=== PATIENT | female | born 1960 | race African-American/Black ===

== ENCOUNTER 2018-05-06 17:34 | Emergency (ER) | payer OTHER ==
[~2018-05-06] VITALS: Ht 175.3 cm; Wt 75.0 kg
[2018-05-06 17:38] VITALS: BP 136/78; PULSE 75; RESP 20; TEMP 98; O2SAT 97
--- NOTE | 2018-05-06 17:44 | PD ---
HPI Chief Complaint: Fall Time Seen by Provider: 17:43 Travel History International Travel<30 days: No Contact w/Intl Traveler<30days: No Traveled to known affect area: No History of Present Illness HPI 57-year-old female with history of fibromyalgia and osteoporosis presents emergency department for evaluation of chest pain after a trip and fall. Patient states she struck her chest on the ground. The wind was knocked out of her. She states it is been painful to take a brief deep breaths since. Pain is a 6 out of 10, constant, exacerbated to a 10 out of 10 with deep inspiration. Denies any hemoptysis. She did not strike her head or lose consciousness. Denies any other symptoms at this time. [facility] Past Medical History Fibromyalgia: Yes Social History Tobacco Use: No Allergies-Medications (Allergen,Severity, Reaction): Coded Allergies: No Known Allergies (Verified Allergy, Unknown, 05/06/18) Review of Systems Except as stated in HPI: all other systems reviewed are Neg Physical Exam Narrative GENERAL: Well-nourished, well-developed female patient in no acute distress SKIN: Focused skin assessment warm/dry. HEAD: Normocephalic. Atraumatic EYES: No scleral icterus. No injection or drainage. NECK: Supple, trachea midline. No JVD or lymphadenopathy. CARDIOVASCULAR: Regular rate and rhythm without murmurs, gallops, or rubs. RESPIRATORY: Breath sounds equal bilaterally. No accessory muscle use. Tenderness elicited to palpation of the anterior thoracic cage. No crepitus. Even respirations. GASTROINTESTINAL: Abdomen soft, non-tender, nondistended. No guarding. No rebound tenderness. MUSCULOSKELETAL: No cyanosis, or edema. 5+ strength equal bilateral extremities. BACK: Nontender without obvious deformity. No CVA tenderness. Data Data Last Documented VS Vital Signs Date Time Temp Pulse Resp B/P (MAP) Pulse Ox O2 Delivery O2 Flow Rate FiO2 05/06/18 17:38 98.0 75 20 136/78 (97) 97 Orders Orders Chest, Pa & Lat (05/06/18 ) Acetamin-Hydrocod 325-5 Mg ([place] 5-325 (05/06/18 17:45) Ibuprofen (Motrin) (05/06/18 18:30) Resp Incentive Spirometry (05/06/18 ) MDM Medical Decision Making Medical Screen Exam Complete: Yes Emergency Medical Condition: Yes Medical Record Reviewed: Yes Differential Diagnosis Contusion versus fracture versus pneumothorax Narrative Course 57-year-old female presents emergency department for evaluation of anterior chest pain following a trip and fall. Patient appears without distress. She does have tenderness elicited to palpation of the anterior chest wall. Patient is treated for pain. Last Impressions Chest X-Ray 05/06/18 0000 Signed Impressions: CONCLUSION: No acute cardiopulmonary disease. No evidence of pneumothorax. Patient will be discharged home with incentive spirometry and pain control. He she is encouraged to follow-up with a primary care provider and return immediately with acute worsening of symptoms Diagnosis Primary Impression: Chest wall contusion Qualified Codes: S20.219A - Contusion of unspecified front wall of thorax, initial encounter Referrals: Primary Care Physician Patient Instructions: Contusion in Adults (ED), General Instructions Additional Instructions: It is important that you deep breath and cough Incentive spirometer on the hour every hour while you are awake Follow-up with your primary care provider Return immediately with acute worsening symptoms Med/Other Pt SpecificInfo: Prescription(s) given Scripts Hydrocodone-Acetaminophen ([place]) 5 Mg-325 Mg Tab 1 TAB PO Q6H Y for PAIN GREATER THAN 5, #12 TAB 0 Refills Prov: Elsi Lopez 05/06/18 Ibuprofen (Ibuprofen) 600 Mg Tab 600 MG PO Q8HR Y for PAIN, #30 TAB 0 Refills Prov: Elsi Lopez 05/06/18 Disposition: 01 DISCHARGE HOME Condition: Stable Elsi Lopez May 06, 2018 17:44
[2018-05-06] MEDS ORDERED: ACETAMINOPHEN/HYDROcodone 325 MG/5 MG TAB PO ONE (17:45)
--- NOTE | 2018-05-06 18:27 | RADRPT ---
EXAM DATE: 05/06/2018 6:00 PM EDT AGE/SEX: 57 years / Female INDICATIONS: Left sided chest pain post fall. CLINICAL DATA: This is the patient's initial encounter. Patient reports that signs and symptoms have been present for 1 day and indicates a pain score of 8/10. MEDICAL/SURGICAL HISTORY: None. None. COMPARISON: No prior exams available for comparison. FINDINGS: PA and lateral views of the chest demonstrate the lungs to be symmetrically aerated without evidence of mass, infiltrate or effusion. The cardiomediastinal contours are unremarkable. Osseous structures are intact. CONCLUSION: No acute cardiopulmonary disease. No evidence of pneumothorax. Electronically signed by: Lalito Blanca MD 05/06/2018 6:26 PM EDT
[2018-05-06] MEDS ORDERED: IBUPROFEN 600 MG TAB PO ONE (18:30)
[2018-05-06] MEDS ORDERED: IBUP-232 PO (18:33)
[2018-05-06] MEDS ORDERED: NORC5TAB PO (18:33)
== END 2018-05-06 19:06 | disposition home or self-care (01) ==
LOC: NEPD 17:34
DX: S20.219A Contusion of unspecified front wall of thorax, initial encounter (principal); R07.1 Chest pain on breathing; M79.7 Fibromyalgia; W01.0XXA Fall on same level from slipping, tripping and stumbling without subsequent striking against object, initial encounter
CPT/HCPCS: 71046; 94150; 99283